=== PATIENT | female | born 1960 | race Caucasian/White ===

== ENCOUNTER → 2022-05-10 | Emergency (ER) | payer BC ==
[~2022-05-10] VITALS: Ht 157.5 cm; Wt 59.0 kg
== END | disposition home or self-care (01) ==
LOC: ER 11:30
DX: S90.32XA Contusion of left foot, initial encounter (principal); X58.XXXA Exposure to other specified factors, initial encounter; Y93.9 Activity, unspecified; Y92.9 Unspecified place or not applicable; Y99.9 Unspecified external cause status